=== PATIENT | male | born 2000 | race Two or more races ===

== ENCOUNTER 2021-08-04 02:50 | Emergency (ER) | payer BC ==
[2021-08-04 03:03] VITALS: BP 117/78; PULSE 70; RESP 17; TEMP 98.4
--- NOTE | 2021-08-04 03:49 | ED ---
Recheck HPI - General Chief Complaint: Recheck/Abnormal Lab/Rx Stated Complaint: Covid test Time Seen by Provider: 08/04/21 02:58 Source: patient Mode of arrival: ambulatory Limitations: no limitations Review of Systems ROS Statement: Those systems with pertinent positive or pertinent negative responses have been documented in the HPI. ROS Other: All systems not noted in ROS Statement are negative. Past Medical History Past Medical History: No Reported History History of Any Multi-Drug Resistant Organisms: None Reported Past Surgical History: No Surgical Hx Reported Past Psychological History: No Psychological Hx Reported Smoking Status: Never smoker Past Alcohol Use History: Occasional Past Drug Use History: None Reported General Exam Limitations: no limitations Course Vital Signs 08/04/21 03:01 Temperature 98.4 F Pulse Rate 70 Respiratory 17 Rate Blood Pressure 117/78 O2 Sat by Pulse 100 Oximetry Disposition Clinical Impression: Normal exam Disposition: HOME SELF-CARE Condition: Good Instructions (If sedation given, give patient instructions): Normal Exam (ED) Is patient prescribed a controlled substance at d/c from ED?: No Referrals: None,Stated [Primary Care Provider] - 1-2 days
== END 2021-08-04 04:20 | disposition home or self-care (01) ==
LOC: EC 02:50
DX: Z20.822 Contact with and (suspected) exposure to COVID-19 (principal); Z72.89 Other problems related to lifestyle
CPT/HCPCS: 87635; 99282